=== PATIENT | male | born 1980 | race Caucasian/White ===

== ENCOUNTER 2017-02-24 13:52 | Inpatient (IN) | payer MEDICARE, MEDICAID ==
[2017-02-24] MEDS ORDERED: MAGNESIUM HYDROXIDE 2,400 MG/10 ML CUP PO PRN (15:54)
[2017-02-24] MEDS ORDERED: ACETAMINOPHEN TAB 325 MG TAB PO PRN (15:54)
[2017-02-24] MEDS ORDERED: FLUTICASONE 50MCG/SPRAY NASAL 16GM EA NOSTRIL PRN (15:59)
[2017-02-24 16:45] VITALS: BMI 31.8
[2017-02-24 16:54] LABS: Basophils % (A) 0 %; CH 28.4; Eosinophils % (A) 0 %; HCT 44.5 % (39.0-53.0); HDW 2.78; HGB 14.3 gm/dL (13.0-17.5); Luc % (Auto) 2; Lymphocytes # (A) 0.8 k/uL (1.0-4.8); Lymphocytes % (A) 14 %; MCH 27.8 pg (25.0-35.0); MCHC 32.1 g/dL (31.0-37.0); MCV 86.5 fL (80.0-100.0); Mean Platelet Volume 6.6; Monocytes # (A) 0.3 k/uL (0-1.0); Monocytes % (A) 5 %; Neutrophils # (A) 4.9 k/uL (1.3-7.7); Neutrophils % (A) 79 %; RBC 5.14 m/uL (4.30-5.90); RDW 14.1 % (11.5-15.5); WBC 6.1 k/uL (3.8-10.6); WBC (Perox) 6.19
[2017-02-24 17:07] LABS: ALT 24 U/L (21-72); AST 21 U/L (17-59); Alkaline Phosphatase 62 U/L (38-126); Anion Gap 11 mmol/L; Blood Urea Nitrogen 6 mg/dL (9-20); Calcium 9.6 mg/dL (8.4-10.2); Carbon Dioxide 27 mmol/L (22-30); Chloride 106 mmol/L (98-107); Glucose 88 mg/dL (74-99); Non-African American GFR(MDRD) >60 (>60 ml/min/1.73 sqM); Potassium 4.2 mmol/L (3.5-5.1); Sodium 144 mmol/L (137-145); Total Bilirubin 0.6 mg/dL (0.2-1.3); Total Protein 6.3 g/dL (6.3-8.2)
[2017-02-24] MEDS: LORazepam 1 MG TAB PO PRN (17:23)
[2017-02-24] MEDS: OLANZapine 10 MG TAB PO SCH (20:26)
[2017-02-24] MEDS: MAG HYDROX/AL HYDROX/SIMETH 30 ML CUP PO PRN (20:28)
[2017-02-24] MEDS ORDERED: cloZAPine 100 MG TAB PO SCH (21:00)
[2017-02-24] MEDS: BUDESONIDE 0.5 MG/2 ML NEBU INHALATION SCH (21:53)
[2017-02-25] MEDS: ESCITALOPRAM 20 MG TAB PO SCH (09:28)
[2017-02-25] MEDS: OLANZapine 10 MG TAB PO SCH ×2 (09:28→21:46)
[2017-02-25] MEDS: BUDESONIDE 0.5 MG/2 ML NEBU INHALATION SCH ×2 (11:07→21:35)
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
--- NOTE | 2017-02-25 16:45 | P.CONS ---
History of Present Illness - Reason for Consult Consult date: 02/25/17 Medical management - History of Present Illness This is a 37-year-old male. He does not have a primary care physician. He has a past history of schizophrenia and muscular dystrophy. Patient was apparently at [facility]. He apparently attempted suicide was agitated and delusional and hearing voices in his head. Patient states that he was delusional and hearing voices. He states he was suicidal but not homicidal. Patient was transferred to [facility] unit. Patient is seen on the mental health unit. He is unable to give history. He is noted to be stuttering and speech is slow. Review of Systems All systems: negative Constitutional: Denies chills, Denies fever Eyes: denies blurred vision, denies pain Ears, nose, mouth and throat: Denies headache, Denies sore throat Cardiovascular: Denies chest pain, Denies shortness of breath Respiratory: Denies cough Gastrointestinal: Denies abdominal pain, Denies diarrhea, Denies nausea, Denies vomiting Musculoskeletal: Denies myalgias Integumentary: Denies pruritus, Denies rash Neurological: Denies numbness, Denies weakness Psychiatric: Reports depression, Reports suicidal ideation, Denies anxiety Endocrine: Denies fatigue, Denies weight change Past Medical History Additional Past Medical History / Comment(s): Muscular Dystrophy History of Any Multi-Drug Resistant Organisms: None Reported Past Anesthesia/Blood Transfusion Reactions: No Reported Reaction Past Psychological History: Schizoaffective Disorder Smoking Status: Never smoker Additional Past Alcohol Use History / Comment(s): Patient denies any marijuana or street drug use. - Past Family History Father Additional Family Medical History / Comment(s): Patient is unable to provide family history. Medications and Allergies Home Medications Medication Instructions Recorded Confirmed Type ARIPiprazole [Abilify] 20 mg PO BID 02/24/17 02/24/17 History Escitalopram [Lexapro] 20 mg PO DAILY 02/24/17 02/24/17 History Fluticasone Nasal [place] [Flonase 1 spr EA NOSTRIL DAILY PRN 02/24/17 02/24/17 History Nasal Somers] Fluticasone Propionate [Flovent 2 puff INHALATION RT-BID 02/24/17 02/24/17 History Hfa 110mcg] Montelukast [Singulair] 10 mg PO HS PRN 02/24/17 02/24/17 History OLANZapine [ZyPREXA] 10 mg PO BID 02/24/17 02/24/17 History cloZAPine [Clozaril] 100 mg PO HS 02/24/17 02/24/17 History hydrOXYzine PAMOATE [Vistaril] 25 mg PO BID PRN 02/24/17 02/24/17 History Allergies Allergy/AdvReac Type Severity Reaction Status Date / Time aspirin Allergy Unknown Verified 02/24/17 15:00 clonazepam [From Klonopin] Allergy Unknown Verified 02/24/17 15:00 Physical Exam Vitals: Vital Signs Temp Pulse Pulse Resp BP BP BP 02/25/17 06:01 98.7 F 94 16 112/61 02/24/17 23:05 98.6 F 106 H 16 106/64 02/24/17 20:40 98.3 F 116 H 16 118/74 02/24/17 20:24 98.3 F 116 H 18 118/74 02/24/17 18:53 99 F 02/24/17 16:36 99.1 F 108 H 15 120/66 02/24/17 15:51 99.1 F 108 H 18 126/66 Pulse Ox 02/25/17 06:01 02/24/17 23:05 95 02/24/17 20:40 97 02/24/17 20:24 02/24/17 18:53 02/24/17 16:36 93 L 02/24/17 15:51 93 L Intake and Output 02/24/17 02/25/17 02/25/17 22:59 06:59 14:59 Other: Weight 92.1 kg Gen: This is a 37-year-old male. He appears to be in no acute distress. Patient does have a sitter/ MHU aide at his side. HEENT: Head is atraumatic, normocephalic. Pupils equal, round. Sclerae is anicteric. NECK: Supple. No JVD. No lymphadenopathy. No thyromegaly. LUNGS: Clear to auscultation. No wheezes or rhonchi. No intercostal retractions. HEART: Regular rate and rhythm. No murmur. ABDOMEN: Soft. Bowel sounds are present. No masses. No tenderness. EXTREMITIES: No pedal edema. No calf tenderness. NEUROLOGICAL: Patient is awake, alert and oriented x3. Cranial nerves 2 through 12 are grossly intact. Results CBC & Chem 7: 02/24/17 16:39 02/24/17 16:39 Labs: Abnormal Lab Results - Last 24 Hours (Table) 02/24/17 02/24/17 Range/Units 16:39 16:39 Lymphocytes # 0.8 L (1.0-4.8) k/uL BUN 6 L (9-20) mg/dL Assessment and Plan Plan: 1. Depression with suicidal ideation in a patient with schizophrenia. Patient admitted to the mental health unit. Continue current plan. 2. Possible seasonal ALLERGIES. Continue Flonase, Singulair and Flovent. 3. No tobacco use. No need for nicotine patch. Impression and plan of care have been directed as dictated by the signing physician. Crissy Correa nurse practitioner acting as scribe for signing physician.
--- NOTE | 2017-02-25 21:25 | CT ---
EXAMINATION TYPE: CT brain wo con DATE OF EXAM: 02/25/2017 9:20 PM COMPARISON: NONE HISTORY: Pin point pupils, possible injury. CT DLP: 1019.60 mGycm Automated exposure control for dose reduction was used. FINDINGS: Ventricles and sulci appear normal. There is no mass effect nor midline shift. There is no sign of in tracranial hemorrhage. The calvarium is intact. There are plugs in the external auditory canals bilat erally. IMPRESSION: Negative unenhanced head CT scan.
[2017-02-25 22:07] LABS: CH 28.3; CHCM 32.1; HCT 46.2 % (39.0-53.0); HDW 2.69; HGB 15.1 gm/dL (13.0-17.5); MCHC 32.7 g/dL (31.0-37.0); MCV 88.5 fL (80.0-100.0); Mean Platelet Volume 6.9; RBC 5.22 m/uL (4.30-5.90); RDW 14.1 % (11.5-15.5); WBC 5.2 k/uL (3.8-10.6)
[2017-02-25 22:15] LABS: Anion Gap 14 mmol/L; Blood Urea Nitrogen 10 mg/dL (9-20); Calcium 9.2 mg/dL (8.4-10.2); Carbon Dioxide 25 mmol/L (22-30); Chloride 103 mmol/L (98-107); Glucose 159 mg/dL (74-99); Non-African American GFR(MDRD) >60 (>60 ml/min/1.73 sqM); Potassium 3.8 mmol/L (3.5-5.1); Sodium 142 mmol/L (137-145)
[2017-02-25 23:27] LABS: Appearance,Urine Clear (Clear); Bilirubin,Urine Negative (Negative); Glucose,Urine (UA) Negative (Negative); Ketones,Urine Negative (Negative); Leukocyte Esterase,Urine Negative (Negative); Nitrite,Urine Negative (Negative); Protein,Urine Negative (Negative); Specific Gravity,Urine 1.006 (1.001-1.035); UA Billing (MACRO vs. MICRO) CHEM; Urobilinogen,Urine <2.0 mg/dL (<2.0)
[2017-02-26 07:58] LABS: Norclozapine 78 ng/mL (200-700)
[2017-02-26 09:07] LABS: CH 28.1; CHCM 32.4; HCT 47.8 % (39.0-53.0); HDW 2.76; HGB 15.7 gm/dL (13.0-17.5); MCH 28.6 pg (25.0-35.0); MCHC 32.8 g/dL (31.0-37.0); MCV 87.2 fL (80.0-100.0); Mean Platelet Volume 6.6; RBC 5.48 m/uL (4.30-5.90); WBC 6.5 k/uL (3.8-10.6)
[2017-02-26] MEDS: BUDESONIDE 0.5 MG/2 ML NEBU INHALATION SCH ×2 (09:23→21:00)
[2017-02-26] MEDS: OLANZapine 10 MG TAB PO SCH ×2 (10:39→21:15)
[2017-02-26] MEDS: ESCITALOPRAM 20 MG TAB PO SCH (10:39)
--- NOTE | 2017-02-26 10:39 | P.PN ---
Progress Note - Text INTERVERAL HISTORY: Patient presented to the [facility] February 23, with signs and symptoms of schizophrenia, decompensation. He was reported to be experiencing an increase in his auditory and visual hallucinations. He presented with thought blocking depression and agitation. In the ER staff reported that patient is suicidal and had attempted to elope from their unit. Patient had recently moved back to his parents home after living alone, after his Clozaril was discontinued. Patient also has cerebral palsy. He was placed on a 60/90 order in [place] and then sent to [place] with Certs in our emergency room and myself making the decision that he could not sign in. Information from his treating psychiatrists was not available, however, family reported that they had found a doctor who would restart Clozaril. However no information was provided regarding what caused the discontinuation of Clozaril, and whether or not the cause was due to a low ANC. Dr. Girard outpatient psychiatrist, is reportedly to have started Clozaril at 100 mg a day for 7 days, with plan to increase by 100 mg each week. Clozaril was held last night since I could not get information about the patient 's lab work or rechallenge of Clozaril. Last night nursing staff became alarmed when it was noted that patient had myosis, question if there had been a fall, so CAT scan was ordered and was read back to me as negative. It was also noted there was no urine drug screen so nursing staff pushed fluids and attempted to get a urine drug screen. Today patient was seen walking slowly down the hallway, and then in his room seated on his bed. Remains essentially unchanged poor eye contact, halting slow responses. Contacted [facility], registered patient. They provided the lab information that may have been the cause of the discontinuation of Clozaril in early January. According to the last CBC done on January 07 his neutrophil count was 1820. This would not require discontinuation of Clozaril. However no other labs prior to that were provided to me. On January 14 his neutrophil count was 3430, on February 20 3620, and here on our lab it was 4900. I have no information regarding what precipitated this drop MENTAL STATUS EXAM: Alert and oriented 2 incorrect date, 2016, poor eye contact and staring at the floor. Answering with halting speech, stuttering and hard to hear due to the volume. At times using thumbs up for answers Patient states he is not hearing voices, but hears his voice, states he hears his voice when awake and asleep. No report of visual hallucinations, patient has not been noted by sitters or staff to be responding to internal stimuli. Mood blunted affect flat. Reports suicidal ideation, denies homicidal ideation. PLAN: Continue inpatient psychiatric admission for safety. Suicide precautions , patient needs a sitter Restart Clozaril with initiating doses of 12.5 mg twice a day, increasing by 25 mg each day. CBC daily basis. Continue other medications prescribed Abilify 20 mg twice a day, Zyprexa 10 mg twice a day, Lexapro 20 mg daily, lorazepam 1 mg every 8 when necessary severe anxiety agitation. Encourage group attendance as tolerates. Progress notes from outpatient doctor.
[2017-02-26] MEDS: MAG HYDROX/AL HYDROX/SIMETH 30 ML CUP PO PRN (10:52)
[2017-02-26] MEDS: cloZAPine 25 MG TAB PO SCH ×2 (11:17→21:15)
[2017-02-26] MEDS ORDERED: BISACODYL 10 MG SUPP RECTAL STA (11:34)
--- NOTE | 2017-02-26 13:43 | XR ---
Abdomen HISTORY: Pain vomiting and nausea Frontal view of the abdomen on 2 images Lung bases are clear. There is a spinal curvature. No bowel obstruction or pneumoperitoneum. Punctate calcification may be superimposed over the left kidney measuring 1 mm. IMPRESSION: Difficult to exclude left-sided renal calculus.
--- NOTE | 2017-02-26 15:26 | P.PN ---
Subjective This is a 37-year-old male. He does not have a primary care physician. He has a past history of schizophrenia and muscular dystrophy. Patient was apparently at [facility]. He apparently attempted suicide was agitated and delusional and hearing voices in his head. Patient states that he was delusional and hearing voices. He states he was suicidal but not homicidal. Patient was transferred to [facility] unit. Patient is seen on the mental health unit. He is unable to give history. He is noted to be stuttering and speech is slow. 02/26: We have been asked to reassess the patient for lack of bowel sounds. Patient was given milk of magnesia and Maalox today. We have also ordered Dulcolax suppository and KUB of the abdomen. X-ray showed no bowel obstruction , possible kidney stone. Patient denies any abdominal pain. Bowel sounds are present. Abdomen is nontender. There was also concern for pinpoint pupils and the CAT scan of the brain was done which was negative. Patient is noted to have pinpoint pupils due to looking into the fluorescent lights. Pupils are equal and reactive. Objective - Vital Signs Vital signs: Vital Signs Temp 98.0 F 02/26/17 11:08 Pulse 111 H 02/26/17 11:08 Resp 16 02/26/17 11:08 BP 116/65 02/26/17 11:08 Pulse Ox 96 02/26/17 11:08 - Exam Gen: This is a 37-year-old male. He appears to be in no acute distress. He is laying on the bed in his room. Patient does have a sitter at bedside. HEENT: Head is atraumatic, normocephalic. Pupils equal, round. Sclerae is anicteric. NECK: Supple. No JVD. No lymphadenopathy. No thyromegaly. LUNGS: Clear to auscultation. No wheezes or rhonchi. No intercostal retractions. HEART: Regular rate and rhythm. No murmur. ABDOMEN: Soft. Bowel sounds are present. No masses. No tenderness. EXTREMITIES: No pedal edema. No calf tenderness. NEUROLOGICAL: Patient is awake, alert and oriented x3. Cranial nerves 2 through 12 are grossly intact. - Labs CBC & Chem 7: 02/26/17 08:52 02/25/17 21:47 Labs: Abnormal Lab Results - Last 24 Hours (Table) 02/25/17 02/25/17 02/25/17 Range/Units 09:03 21:47 23:00 Glucose 159 H (74-99) mg/dL Clozapine 149 L (200-700) ng/mL Norclozapine 78 L (200-700) ng/mL U Benzodiazepines Scrn Detected H (NotDetected) Assessment and Plan Plan: 1. Depression with suicidal ideation in a patient with schizophrenia. Patient admitted to the mental health unit. Continue current plan. 2. Possible seasonal ALLERGIES. Continue Flonase, Singulair and Flovent. 3. No tobacco use. No need for nicotine patch. 4. Possible constipation. Continue milk of magnesia. Impression and plan of care have been directed as dictated by the signing physician. Crissy Correa nurse practitioner acting as scribe for signing physician.
[2017-02-26 19:40] LABS: Glucose,Whole Blood 159 mg/dL (75-99)
--- NOTE | 2017-02-27 09:16 | P.PN ---
Progress Note - Text INTERVERAL HISTORY:Patient was approached in hallway, he agreed to come to office. Patient responded to questions with halting speech, frequently answering with a question. Patient did not answer how he was doing today, but asked where he should begin, he spelled where instead of saying the word. He continued to do this spelling why, when. He gave a thumbs up when asked about suicidal ideation. He then reported he is getting mad, aggressive. Patient asked when can he leave hospital, again spelling word when. MENTAL STATUS EXAM:A&O x2, poorly groomed, poor to fair eye contact. +auditory hallucinations, no visual hallucinations reported, no command hallucinations. Less thought blocking, less odd/illogical thoughts/responses but still tangential with cecilio. mood blunted, affect flat. +suicidal ideation, no homicidal ideation A:Patient remains with thought disorganization, with hallucinations, cecilio, odd statements, spelling of words but improved eye contact. Suicidal ideation. Schizophrenia, undifferentiated PLAN: Patient to continue psychiatric inpatient admission for safety purposes and medication management of psychosis. Will increase clozaril to am to 25mg bid. Will check cbc with dif tomorrow morning. Continue abilify, zyprexa as long as patient is reporting feeling aggressive/ angry since he required higher doses to manage his aggression. Milieu therapy as tolerated Remain 1:[address] Girard, she reports he was admitted to hospital after his outpatient psychiatrist Dr Spencer started him on vraylar and he had aggressive behavior response to it. Admitted to hospital, and prescribed zyprexa 40mg qday , Abilify 20mg bid and abilify mantena 450mg. When seen by Dr Lorenz, he presented with TB, tangential, circumstantial TP with odd statements but polite , not using hands to communicate. She contacted [facility] and registered patient with her, noting his neutrophil count was 1.8, not requiring discontinuation of clozaril. She reduced zyprexa to 10mg bid, started clozaril. However patient became aggressive again and family took to ER and patient transferred here. She reports patient did well for 20+ years on clozaril 450mg split in 2 doses 200mg qam 250qpm, zoloft 250mg for OCD. She would like to have lexapro changed back to zoloft. Would like to consider a mood stabilizer, trileptal 150mg bid Taper off the 2 antipsychotics when possible. Agreed with the clozaril titration of increase daily by 12.5mg bid or 25mg bid.
[2017-02-27] MEDS: OLANZapine 10 MG TAB PO SCH ×2 (09:52→20:20)
[2017-02-27] MEDS: ESCITALOPRAM 20 MG TAB PO SCH (09:52)
[2017-02-27] MEDS: cloZAPine 25 MG TAB PO SCH ×2 (09:53→20:20)
[2017-02-27] MEDS: BUDESONIDE 0.5 MG/2 ML NEBU INHALATION SCH ×2 (09:55→20:47)
[2017-02-27] MEDS ORDERED: cloZAPine 25 MG TAB PO SCH (11:00)
[2017-02-27 11:59] LABS: Basophils % (A) 0 %; CH 28.5; CHCM 32.6; Eosinophils % (A) 0 %; HCT 49.1 % (39.0-53.0); HDW 2.76; HGB 15.9 gm/dL (13.0-17.5); Luc # (Auto) 0.11; Luc % (Auto) 2; Lymphocytes % (A) 18 %; MCH 28.4 pg (25.0-35.0); MCHC 32.4 g/dL (31.0-37.0); MCV 87.8 fL (80.0-100.0); Mean Platelet Volume 6.6; Monocytes # (A) 0.3 k/uL (0-1.0); Monocytes % (A) 6 %; Neutrophils # (A) 4.1 k/uL (1.3-7.7); Neutrophils % (A) 74 %; RBC 5.59 m/uL (4.30-5.90); RDW 14.1 % (11.5-15.5); WBC 5.6 k/uL (3.8-10.6); WBC (Perox) 5.87
[2017-02-28] MEDS: ARIPiprazole 15 MG TAB PO SCH (09:41)
[2017-02-28] MEDS: cloZAPine 25 MG TAB PO SCH ×4 (09:42→22:12)
[2017-02-28] MEDS: OLANZapine 10 MG TAB PO SCH ×2 (09:43→22:14)
[2017-02-28] MEDS: DOCUSATE 100 MG CAP PO SCH ×2 (09:43→22:14)
[2017-02-28] MEDS: ESCITALOPRAM 20 MG TAB PO SCH (09:43)
[2017-02-28] MEDS: BUDESONIDE 0.5 MG/2 ML NEBU INHALATION SCH ×2 (10:46→21:18)
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
[2017-02-28 11:05] LABS: Basophils % (A) 0 %; CH 28.2; CHCM 32.4; Eosinophils % (A) 0 %; HCT 46.6 % (39.0-53.0); HDW 2.79; HGB 15.1 gm/dL (13.0-17.5); Luc # (Auto) 0.07; Luc % (Auto) 1; Lymphocytes # (A) 0.8 k/uL (1.0-4.8); Lymphocytes % (A) 16 %; MCH 28.4 pg (25.0-35.0); MCHC 32.4 g/dL (31.0-37.0); MCV 87.5 fL (80.0-100.0); Mean Platelet Volume 6.7; Monocytes # (A) 0.3 k/uL (0-1.0); Monocytes % (A) 5 %; Neutrophils # (A) 4.2 k/uL (1.3-7.7); Neutrophils % (A) 78 %; RBC 5.33 m/uL (4.30-5.90); WBC 5.4 k/uL (3.8-10.6); WBC (Perox) 5.21
[2017-02-28] MEDS: LORazepam 1 MG TAB PO PRN (14:15)
[2017-03-01] MEDS: LORazepam 1 MG TAB PO PRN ×2 (00:57→19:14)
[2017-03-01] MEDS ORDERED: ZIPRASIDONE 20 MG VIAL IM ONE ×2 (01:55→19:34)
[2017-03-01] MEDS ORDERED: WATER FOR INJECTION, STERILE 10 ML IV ONE ×2 (01:55→19:34)
[2017-03-01] MEDS: ZIPRASIDONE 20 MG VIAL IM PRN ×2 (01:56→19:39)
[2017-03-01] MEDS: ARIPiprazole 15 MG TAB PO SCH (09:28)
[2017-03-01] MEDS: cloZAPine 25 MG TAB PO SCH ×3 (09:29→19:50)
[2017-03-01] MEDS: DOCUSATE 100 MG CAP PO SCH ×2 (09:30→19:50)
[2017-03-01] MEDS: ESCITALOPRAM 20 MG TAB PO SCH (09:31)
[2017-03-01] MEDS: OLANZapine 10 MG TAB PO SCH ×2 (09:32→20:45)
[2017-03-01] MEDS: BUDESONIDE 0.5 MG/2 ML NEBU INHALATION SCH ×2 (10:05→21:26)
--- NOTE | 2017-03-01 10:48 | P.PN ---
Progress Note - Text INTERVERAL HISTORY: Patient walking in the hallway with nurses aide, approached me, "are you DrKishan?". Patient asked if he could talk with me if I was not busy he followed me to my office. Patient again with halting speech, spelling of words. Wants to let me know that he is able to change the appearances of people, speaks in short bursts, spelling some words. Little to no eye contact. Reports that he went to court, that he has received letters from people, his family. Patient continues with illogical thought process. Unable to answer if he is suicidal, but reports he gets mad and aggressive. He did state this is coming and going. MENTAL STATUS EXAM: Alert and oriented to person and place, poorly groomed, poor eye contact. Continues with illogical, tangential thought process. Positive for WARREN. Although not identifying auditory hallucinations, he appears to be responding to them and thought blocking. Mood blunted, affect flat No clear evidence of suicidal ideation, but due to his remark of getting mad and aggressive he may have some command hallucinations to harm others. Schizophrenia, undifferentiated, decompensated History of OCD PLAN: Continue inpatient psychiatric hospitalization, for safety of patient and others, and medication management of psychosis. Continue titration of Clozaril, increased daily by 25-50 mg of Clozaril Over the weekend will continue Abilify 30 mg daily, Zyprexa 10 mg twice a day. Continue one to one monitoring for safety. Groups as tolerated. Addendum: Nursing reported patient was restless and required lorazepam and geodone. Will increase olanzapine at HS, 10mg qam. Will not reduce Abilify over weekend but plan to eventually taper and d/c. Will keep clozaril at 50mg bid over weekend. Daily CBC/ANC
[2017-03-01 12:36] LABS: Basophils % (A) 0 %; CH 28.6; CHCM 33.3; Eosinophils % (A) 0 %; HCT 46.6 % (39.0-53.0); HDW 2.97; HGB 15.2 gm/dL (13.0-17.5); Luc # (Auto) 0.13; Luc % (Auto) 2; Lymphocytes % (A) 15 %; MCH 28.1 pg (25.0-35.0); MCHC 32.5 g/dL (31.0-37.0); MCV 86.4 fL (80.0-100.0); Mean Platelet Volume 6.6; Monocytes # (A) 0.4 k/uL (0-1.0); Monocytes % (A) 6 %; Neutrophils # (A) 5.1 k/uL (1.3-7.7); Neutrophils % (A) 76 %; RDW 13.8 % (11.5-15.5); WBC 6.6 k/uL (3.8-10.6); WBC (Perox) 6.78
[2017-03-01] MEDS: LORazepam 2 MG/ML SYRINGE IM PRN (19:39)
[2017-03-01] MEDS: NYSTATIN 100,000 UNIT/GM POWD 15 GM TOPICAL SCH (19:50)
[2017-03-02 08:42] LABS: Basophils % (A) 0 %; CH 28.3; CHCM 32.3; Eosinophils % (A) 0 %; HCT 49.5 % (39.0-53.0); HDW 2.81; HGB 16.2 gm/dL (13.0-17.5); Luc # (Auto) 0.12; Luc % (Auto) 2; Lymphocytes # (A) 0.9 k/uL (1.0-4.8); Lymphocytes % (A) 15 %; MCH 28.7 pg (25.0-35.0); MCHC 32.7 g/dL (31.0-37.0); MCV 87.8 fL (80.0-100.0); Mean Platelet Volume 6.6; Monocytes # (A) 0.3 k/uL (0-1.0); Monocytes % (A) 5 %; Neutrophils # (A) 4.9 k/uL (1.3-7.7); Neutrophils % (A) 78 %; RBC 5.64 m/uL (4.30-5.90); RDW 13.9 % (11.5-15.5); WBC 6.2 k/uL (3.8-10.6); WBC (Perox) 6.15
[2017-03-02] MEDS: BUDESONIDE 0.5 MG/2 ML NEBU INHALATION SCH ×2 (09:11→20:22)
[2017-03-02] MEDS: OLANZapine 10 MG TAB PO SCH ×2 (09:14→20:54)
[2017-03-02] MEDS: ESCITALOPRAM 20 MG TAB PO SCH (09:15)
[2017-03-02] MEDS: cloZAPine 25 MG TAB PO SCH ×2 (09:15→20:54)
[2017-03-02] MEDS: DOCUSATE 100 MG CAP PO SCH ×2 (09:15→20:54)
[2017-03-02] MEDS: ARIPiprazole 15 MG TAB PO SCH (09:15)
[2017-03-02] MEDS: NYSTATIN 100,000 UNIT/GM POWD 15 GM TOPICAL SCH ×3 (10:02→22:06)
--- NOTE | 2017-03-02 18:41 | P.PN ---
Progress Note - Text Date of service: 03/02/2017 Chief complaint: "I'm hearing real voices" Subjective: The patient has been seen today as follow-up, chart reviewed, case discussed with the treatment team. patient has been presented and very blunted affect, very few steps when walking, unable to talk in full statement, spelling words. Patient has been talking about continued to hear voices and the voices telling him to do things but he couldn't explain more. When he was asking about the voices telling him to hurt self or other he answered "kind of" the patient currently on 3 anti-psychotic medication with the plan to take him off Abilify. Patient recently started on clozapine and he is currently on 50 mg twice daily. CBC reviewed. Review of other systems: Patient denies any physical symptoms besides what has been mentioned above. No breathing problems, no chest pain reported today. Objective: Vitals has been reviewed. Mental status examination: The patient presented in poor hygiene poorly groomed with normal eye contact. He has very short steps when he walks was normal arm swinging and very stiff. Patient was very guarded patient presented with psychomotor retardation Speech was monotone, spelling words. Mood is depressed, was blunted affect patient looks responding to internal stimuli and he reported auditory hallucinations The patient presented logical tangential Insight: Patient has limited insight about his psychiatric disorder. Judgment: Patient has limited judgment about his psychiatric treatment. Assessment: schizophrenia Plan: continue Lexapro 20 mg daily for depression Continue Abilify 30 mg daily, Zyprexa 10 mg a.m. and 20 mg at bedtime, and clozapine 50 mg twice daily for persistent severe psychotic symptoms Continue [facility] with [facility] as her original plan.
[2017-03-02] MEDS ORDERED: WATER FOR INJECTION, STERILE 10 ML IV ONE (21:37)
[2017-03-02] MEDS ORDERED: ZIPRASIDONE 20 MG VIAL IM ONE (21:37)
[2017-03-02] MEDS: LORazepam 2 MG/ML SYRINGE IM PRN (21:40)
[2017-03-02] MEDS: ZIPRASIDONE 20 MG VIAL IM PRN (21:40)
[2017-03-03] MEDS: OLANZapine 10 MG TAB PO SCH ×2 (08:45→20:25)
[2017-03-03] MEDS: ESCITALOPRAM 20 MG TAB PO SCH (08:45)
[2017-03-03] MEDS: DOCUSATE 100 MG CAP PO SCH ×2 (08:45→20:24)
[2017-03-03] MEDS: cloZAPine 25 MG TAB PO SCH ×2 (08:45→20:24)
[2017-03-03] MEDS: ARIPiprazole 15 MG TAB PO SCH (08:45)
[2017-03-03 09:26] LABS: Basophils % (A) 0 %; CH 28.2; CHCM 32.4; Eosinophils % (A) 0 %; HCT 50.6 % (39.0-53.0); HDW 2.81; HGB 16.4 gm/dL (13.0-17.5); Luc % (Auto) 2; Lymphocytes # (A) 1.1 k/uL (1.0-4.8); Lymphocytes % (A) 18 %; MCH 28.3 pg (25.0-35.0); MCHC 32.4 g/dL (31.0-37.0); MCV 87.5 fL (80.0-100.0); Mean Platelet Volume 6.7; Monocytes # (A) 0.3 k/uL (0-1.0); Monocytes % (A) 5 %; Neutrophils # (A) 4.9 k/uL (1.3-7.7); Neutrophils % (A) 76 %; RBC 5.78 m/uL (4.30-5.90); WBC 6.5 k/uL (3.8-10.6); WBC (Perox) 6.35
[2017-03-03] MEDS: BUDESONIDE 0.5 MG/2 ML NEBU INHALATION SCH ×2 (09:32→20:18)
[2017-03-03] MEDS: NYSTATIN 100,000 UNIT/GM POWD 15 GM TOPICAL SCH ×2 (09:59→20:24)
--- NOTE | 2017-03-03 12:44 | P.PN ---
Progress Note - Text Date of service: 03/03/2017 Chief complaint: "I feel my family lives here too" Subjective: The patient has been seen today as follow-up, chart reviewed, case discussed with the treatment team. The patient presented very emotional, tearing and very stressed. He was talking about he believes his family lives here in the hospital and he would be living here forever. The patient was not able to explain or talk about his mood but he continued to state that he has suicidal thoughts without exploring about that. The patient reported continued to hear voices. The patient presented the same regarding his his speech is spelling words and unable to talk in full statement. Patient was very agitated, and he was directed to nurse to get when necessary medication. Continue anti- psychotic medication including Abilify, Zyprexa, and clozapine 50 mg twice daily. CBC reviewed WNL. Review of other systems: No breathing problems, no chest pain reported today. Objective: Vitals has been reviewed. Mental status examination: The patient presented in poor hygiene poorly groomed with normal eye contact. He has very short steps when he walks was normal arm swinging and very stiff. Patient was very guarded patient presented with psychomotor retardation Speech was monotone, spelling words. Mood is depressed, was tearful and very agitated affect patient looks responding to internal stimuli and he reported auditory hallucinations The patient presented tangential and not coherent Insight: Patient has limited insight about his psychiatric disorder. Judgment: Patient has limited judgment about his psychiatric treatment. Assessment: schizophrenia Plan: Continue inpatient level of care continue Lexapro 20 mg daily for depression Continue Abilify 30 mg daily, Zyprexa 10 mg a.m. and 20 mg at bedtime, and clozapine 50 mg twice daily for persistent severe psychotic symptoms Continue follow-up with CBC daily as per original plan. Continue one on one monitoring.
[2017-03-03] MEDS: LORazepam 1 MG TAB PO PRN (13:08)
[2017-03-04 07:59] LABS: Basophils % (A) 0 %; CH 28.3; CHCM 32.4; Eosinophils % (A) 0 %; HCT 47.6 % (39.0-53.0); HDW 2.82; HGB 15.5 gm/dL (13.0-17.5); Luc % (Auto) 2; Lymphocytes % (A) 20 %; MCH 28.6 pg (25.0-35.0); MCHC 32.6 g/dL (31.0-37.0); MCV 87.7 fL (80.0-100.0); Mean Platelet Volume 6.7; Monocytes # (A) 0.3 k/uL (0-1.0); Monocytes % (A) 5 %; Neutrophils # (A) 3.6 k/uL (1.3-7.7); Neutrophils % (A) 73 %; RBC 5.43 m/uL (4.30-5.90); WBC 4.9 k/uL (3.8-10.6)
[2017-03-04] MEDS: BUDESONIDE 0.5 MG/2 ML NEBU INHALATION SCH ×2 (09:13→21:21)
[2017-03-04] MEDS: cloZAPine 25 MG TAB PO SCH (10:30)
[2017-03-04] MEDS: ARIPiprazole 15 MG TAB PO SCH (10:30)
[2017-03-04] MEDS: DOCUSATE 100 MG CAP PO SCH ×2 (10:30→22:15)
[2017-03-04] MEDS: ESCITALOPRAM 20 MG TAB PO SCH (10:30)
[2017-03-04] MEDS: NYSTATIN 100,000 UNIT/GM POWD 15 GM TOPICAL SCH ×2 (10:31→22:15)
[2017-03-04] MEDS: OLANZapine 10 MG TAB PO SCH ×2 (10:31→22:15)
--- NOTE | 2017-03-04 14:41 | P.PN ---
Progress Note - Text INTERVERAL HISTORY: Patient lying in bed and awoke easily to name being called, but rather than looking at consumer loan underwriter kept his head turned away "is that you Dr.? " Asked patient to sit up on side of bed he complied. Asked patient how he was feeling, patient took 30 seconds 45 seconds to answer, "can I tell you something" patient then stated he wants me to read a letter but states that letters in his journal have been stolen. Patient continues with slow responses non sequitur responses, and frequently asking questions rather than answering. Patient is speaking in low tones and when asked to speak up patient states I'm talking loud. Patient would not answer if he was suicidal, or if he was hearing voices, but answered that I'm no longer recognizing who he is. Asked to he is and he reported he is no longer Chris Kathleen, but could not state who he was. Today no no spelling of words no halting or stuttering but delayed responses. MENTAL STATUS EXAM: Alert and oriented to person and place, poorly groomed, poor eye contact. Continues with illogical, tangential thought process. Positive for WARREN. Although not identifying auditory hallucinations, he appears to be responding to them and thought blocking. Mood blunted, affect flat No clear evidence of suicidal ideation, but due to his remark of getting mad and aggressive he may have some command hallucinations to harm others. Schizophrenia, undifferentiated, decompensated History of OCD PLAN: Continue inpatient psychiatric hospitalization, for safety of patient and others, and medication management of psychosis. Continue with 1:1 Continue titration of Clozaril, increased daily by 50 mg of Clozaril. Begin tonight 100mg, continue 50mg QAM. Reduce Abilify 20 mg daily, continue Zyprexa 10mg qam and 20mg qhs, with goal to eventually d/c both abilify and zyprexa once responding to clozaril. Groups as tolerated.
[2017-03-04] MEDS ORDERED: cloZAPine 100 MG TAB PO SCH (21:00)
[2017-03-05 09:43] LABS: Basophils % (A) 0 %; CH 28.5; Eosinophils % (A) 0 %; HCT 48.3 % (39.0-53.0); HDW 2.71; HGB 15.2 gm/dL (13.0-17.5); Luc % (Auto) 2; Lymphocytes % (A) 16 %; MCH 28.1 pg (25.0-35.0); MCHC 31.5 g/dL (31.0-37.0); MCV 89.2 fL (80.0-100.0); Mean Platelet Volume 6.7; Monocytes # (A) 0.2 k/uL (0-1.0); Monocytes % (A) 4 %; Neutrophils # (A) 4.9 k/uL (1.3-7.7); Neutrophils % (A) 79 %; RBC 5.41 m/uL (4.30-5.90); RDW 13.9 % (11.5-15.5); WBC 6.2 k/uL (3.8-10.6)
[2017-03-05] MEDS: BUDESONIDE 0.5 MG/2 ML NEBU INHALATION SCH ×2 (10:27→21:28)
[2017-03-05] MEDS: ESCITALOPRAM 20 MG TAB PO SCH (11:14)
[2017-03-05] MEDS: DOCUSATE 100 MG CAP PO SCH ×2 (11:15→22:36)
[2017-03-05] MEDS: cloZAPine 25 MG TAB PO SCH (11:16)
[2017-03-05] MEDS: OLANZapine 10 MG TAB PO SCH ×2 (11:17→22:36)
[2017-03-05] MEDS: NYSTATIN 100,000 UNIT/GM POWD 15 GM TOPICAL SCH ×2 (11:17→22:36)
--- NOTE | 2017-03-05 12:51 | P.PN ---
Progress Note - Text INTERVERAL HISTORY: Patient lying in bed and awoke easily to name being called, patient again asked who was speaking rather than looking at person. Asked patient to come to office, he complied, walking in a stiff robot fashion. Seated with arms straight out fingers extended, staring straight ahead rather than at film writer. Patient responded slowly to all questions. No spelling of words. No hand signals , occaisonal eye contact, saying doctor almost every other word. Continues to report delusions, today focusing on "uncle Miguel Legget" unclear what about him but patient stated he felt sad. Patient continues with slow responses non sequitur responses, and frequently asking questions rather than answering. Patient is speaking in low tones. Patient would not answer if he was suicidal, but staff has reported he has said he would put arms around himself. Continues to report identity fraud, including him not being Chris. MENTAL STATUS EXAM: Essentially unchanged Alert and oriented to person and place, poorly groomed, poor eye contact. Continues with illogical, tangential thought process. Positive for WARREN. Although not identifying auditory hallucinations, he appears to be responding to them and thought blocking. Mood blunted, affect flat No clear evidence of suicidal ideation, but due to his remark of getting mad and aggressive he may have some command hallucinations to harm others. Schizophrenia, undifferentiated, decompensated History of OCD PLAN: Continue inpatient psychiatric hospitalization, for safety of patient and others, and medication management of psychosis. Will discontinue with 1:1 today and assess him q15min, encouraged him to attend groups when he can Continue titration of Clozaril, increased daily by 50 mg of Clozaril. Begin tonight 150mg, continue 50mg QAM. Reduce Abilify 10 mg tomorrow morning and on Saturday will d/c. Continue Zyprexa 10mg qam and 20mg qhs, with goal to eventually taper and d/c zyprexa if possible.
[2017-03-05] MEDS ORDERED: cloZAPine 100 MG TAB PO SCH (21:00)
[2017-03-05] MEDS ORDERED: cloZAPine 25 MG TAB PO SCH (21:00)
[2017-03-06] MEDS: BUDESONIDE 0.5 MG/2 ML NEBU INHALATION SCH ×2 (08:00→21:53)
[2017-03-06] MEDS ORDERED: ARIPiprazole 10 MG TAB PO SCH (09:00)
[2017-03-06] MEDS: DOCUSATE 100 MG CAP PO SCH ×2 (09:45→20:37)
[2017-03-06] MEDS: cloZAPine 25 MG TAB PO SCH (09:46)
[2017-03-06] MEDS: ESCITALOPRAM 20 MG TAB PO SCH (09:48)
[2017-03-06] MEDS: OLANZapine 10 MG TAB PO SCH ×2 (09:48→20:37)
[2017-03-06] MEDS: NYSTATIN 100,000 UNIT/GM POWD 15 GM TOPICAL SCH ×2 (09:52→20:37)
[2017-03-06 10:02] LABS: Basophils % (A) 0 %; CH 28.5; CHCM 32.3; Eosinophils % (A) 0 %; HCT 49.9 % (39.0-53.0); HGB 15.9 gm/dL (13.0-17.5); Luc # (Auto) 0.14; Luc % (Auto) 2; Lymphocytes # (A) 0.9 k/uL (1.0-4.8); Lymphocytes % (A) 11 %; MCH 28.2 pg (25.0-35.0); MCHC 31.8 g/dL (31.0-37.0); MCV 88.7 fL (80.0-100.0); Mean Platelet Volume 6.7; Monocytes # (A) 0.3 k/uL (0-1.0); Monocytes % (A) 3 %; Neutrophils # (A) 6.5 k/uL (1.3-7.7); Neutrophils % (A) 83 %; RBC 5.62 m/uL (4.30-5.90); WBC 7.8 k/uL (3.8-10.6); WBC (Perox) 7.65
--- NOTE | 2017-03-06 13:36 | P.PN ---
Progress Note - Text INTERVERAL HISTORY: Patient patient seen walking in the hallway with nursing staff, refused to look at me. Later patient was seen sitting on the edge of his bed, asked him if he would come to my office to talk, he answered with a question where is your office. Patient has been remaining to himself in his room but last night he did go to the dining room for dinner without being prompted. He has been resistant in ADLs. He continues to display slowed mentation, halting speech and thought blocking. However today he was more interactive than previous days. He is tolerating the reduction of Abilify without an increase in psychotic symptoms Patient responded slowly to all questions. Afew words were spelled. He continues to focus on identity, today saying that he is a stranger to me. Spoke about and Brandy Jimenez, as if he is speaking of himself. Believes he can tell the future or if he thinks of something it will happen. Patient not reporting suicidal or homicidal ideation Laboratory Tests 03/06/17 09:23 WBC 7.8 RBC 5.62 Hgb 15.9 Hct 49.9 MCV 88.7 MCH 28.2 MCHC 31.8 RDW 14.0 Plt Count 252 Neutrophils % 83 Lymphocytes % 11 Monocytes % 3 Neutrophils # 6.5 Lymphocytes # 0.9 L MENTAL STATUS EXAM: Essentially unchanged but showing some improved interaction Alert and oriented to person and place, poorly groomed, occasional eye contact. Continues with illogical, tangential thought process. Positive for WARREN. + delusions. Although not identifying auditory hallucinations, he appears to be responding to them and thought blocking. Mood blunted, affect flat No suicidal ideation. Schizophrenia, undifferentiated, decompensated History of OCD PLAN: Continue inpatient psychiatric hospitalization, for safety of patient and others, and medication management of psychosis. Suicide checks q15min, encouraged him to attend groups when he can. Continue titration of Clozaril, increased daily by 50 mg of Clozaril. Begin tonight 200mg, continue 50mg QAM. CBC WNL, neutrophils WNL. D/C Abilify Continue Zyprexa 10mg qam and 20mg qhs, with goal to eventually taper and d/c zyprexa if possible.
[2017-03-06] MEDS: cloZAPine 100 MG TAB PO SCH (20:36)
[2017-03-07] MEDS: NYSTATIN 100,000 UNIT/GM POWD 15 GM TOPICAL SCH ×2 (08:39→21:06)
[2017-03-07] MEDS: DOCUSATE 100 MG CAP PO SCH ×2 (08:43→21:04)
[2017-03-07] MEDS: OLANZapine 10 MG TAB PO SCH ×2 (08:44→21:04)
[2017-03-07] MEDS ORDERED: ESCITALOPRAM 10 MG TAB PO SCH (09:00)
[2017-03-07] MEDS ORDERED: cloZAPine 100 MG TAB PO SCH (09:00)
[2017-03-07] MEDS: BUDESONIDE 0.5 MG/2 ML NEBU INHALATION SCH ×2 (09:20→21:06)
--- NOTE | 2017-03-07 13:32 | P.PN ---
Progress Note - Text INTERVERAL HISTORY: Patient went to lunch on his own w/o being directed. Clarification as to why patient calls himself Casey (that was his name prior to adoption, pt only recently found out he was adopted, which may explain the identity focus). Patient met with family yesterday and felt sad when they left. He is tolerating the titration of clozaril. Today is the first day that he did not receive Abilify in am and no problems noted, no increase of psychosis. He went to group this morning, tolerated for 30 min, only had to state his name but could not. Continue slow mentation, but improving, halting speech, no spelling or hand signals. Patient asked if I could tell he is calmer. Patient not reporting suicidal or homicidal ideation Laboratory Tests 03/02/17 03/03/17 03/04/17 08:10 08:57 07:39 Neutrophils % 78 76 73 03/05/17 03/06/17 08:48 09:23 Neutrophils % 79 83 MENTAL STATUS EXAM: Essentially unchanged but showing some improved interaction. Alert and oriented to person and place, poorly groomed, occasional eye contact. Continues with illogical, tangential thought process. Positive for AWRREN. + delusions. Although not identifying auditory hallucinations, he appears to be responding to them and thought blocking. Mood blunted, affect flat No suicidal ideation. Schizophrenia, undifferentiated, decompensated History of OCD PLAN: Continue inpatient psychiatric hospitalization, for safety of patient and others, and medication management of psychosis. Suicide checks q15min, encouraged him to attend groups when he can. Continue titration of Clozaril, increased daily by 50 mg of Clozaril. Begin today 100mg qam, 200mg qhs. Reduce lexapro to 10mg qam Continue Zyprexa 10mg qam and 20mg qhs, with goal to eventually taper and d/c zyprexa if possible. Will d/c daily CBC. Will check QOD. CBC WNL, neutrophils WNL.
[2017-03-07] MEDS: cloZAPine 100 MG TAB PO SCH (21:04)
[2017-03-08] MEDS: cloZAPine 100 MG TAB PO SCH ×2 (09:14→21:03)
[2017-03-08] MEDS: DOCUSATE 100 MG CAP PO SCH ×2 (09:15→21:03)
[2017-03-08] MEDS: NYSTATIN 100,000 UNIT/GM POWD 15 GM TOPICAL SCH ×2 (09:16→21:04)
[2017-03-08] MEDS: SERTRALINE 25 MG TAB PO SCH (09:17)
[2017-03-08] MEDS: OLANZapine 10 MG TAB PO SCH ×2 (09:17→21:01)
[2017-03-08] MEDS: BUDESONIDE 0.5 MG/2 ML NEBU INHALATION SCH ×2 (09:22→21:05)
--- NOTE | 2017-03-08 12:26 | P.PN ---
Progress Note - Text INTERVERAL HISTORY: Patient lying bed, responds to name but does not sit up or look at ticket writer. Speaks w/o looking. States he is crushing things, asked what is he crushing he mumbles, asked to repeat and says, I'll sit up. He sits up but continues to look away, speaking in almost inaudible tones. Says he thinks we do not know who he is. Smiles when stating this. He is tolerating the titration of clozaril. Day #2 w/o Abilify no problems noted, no increase of psychosis. Continue slow mentation, but improving, halting speech, no spelling or hand signals. Patient not reporting suicidal or homicidal ideation MENTAL STATUS EXAM: Today reduced interaction. Alert and oriented to person and place, poorly groomed, no eye contact. Continues with illogical, tangential thought process. Positive for WARREN. + delusions. Although not identifying auditory hallucinations, he appears to be responding to them and thought blocking. Mood blunted, affect flat No suicidal ideation. Schizophrenia, undifferentiated, decompensated History of OCD PLAN: Continue inpatient psychiatric hospitalization, for safety of patient and others, and medication management of psychosis. Suicide checks q15min, encouraged him to attend groups when he can. Continue titration of Clozaril, increased daily by 50 mg of Clozaril. Begin today 100mg qam, 200mg qhs. D/C lexapro Start zoloft 50mg qam Continue Zyprexa 10mg qam and 20mg qhs, with goal to eventually taper and d/c zyprexa if possible. Will d/c daily CBC. Will check QOD. CBC WNL, neutrophils WNL.
[2017-03-09] MEDS: BUDESONIDE 0.5 MG/2 ML NEBU INHALATION SCH ×2 (09:34→20:53)
[2017-03-09] MEDS: cloZAPine 100 MG TAB PO SCH ×2 (09:34→20:17)
[2017-03-09] MEDS: SERTRALINE 25 MG TAB PO SCH (09:35)
[2017-03-09] MEDS: OLANZapine 10 MG TAB PO SCH ×2 (09:35→20:17)
[2017-03-09] MEDS: DOCUSATE 100 MG CAP PO SCH ×2 (09:35→20:17)
[2017-03-09] MEDS: NYSTATIN 100,000 UNIT/GM POWD 15 GM TOPICAL SCH ×3 (09:35→21:49)
--- NOTE | 2017-03-09 11:14 | P.PN ---
Subjective This is a 37-year-old male. He does not have a primary care physician. He has a past history of schizophrenia and muscular dystrophy. Patient was apparently at [facility]. He apparently attempted suicide was agitated and delusional and hearing voices in his head. Patient states that he was delusional and hearing voices. He states he was suicidal but not homicidal. Patient was transferred to [facility] unit. Patient is seen on the mental health unit. He is unable to give history. He is noted to be stuttering and speech is slow. 02/26: We have been asked to reassess the patient for lack of bowel sounds. Patient was given milk of magnesia and Maalox today. We have also ordered Dulcolax suppository and KUB of the abdomen. X-ray showed no bowel obstruction , possible kidney stone. Patient denies any abdominal pain. Bowel sounds are present. Abdomen is nontender. There was also concern for pinpoint pupils and the CAT scan of the brain was done which was negative. Patient is noted to have pinpoint pupils due to looking into the fluorescent lights. Pupils are equal and reactive. 03/09: We have been asked to recheck the patient as he has had white tears and occasionally white nasal drainage. Patient is nonverbal during our evaluation. He does not appear to be in any distress. Objective - Vital Signs Vital signs: Vital Signs Temp 98.6 F 03/09/17 09:46 Pulse 111 H 03/09/17 09:46 Resp 20 03/09/17 09:46 BP 125/74 03/09/17 09:46 Pulse Ox 97 03/09/17 09:46 Intake & Output 03/08/17 03/09/17 03/09/17 18:59 06:59 18:59 Weight 92.1 kg - Exam Gen: This is a 37-year-old male. He appears to be in no acute distress. He is laying on the bed in his room. Patient does have a sitter at bedside. HEENT: Head is atraumatic, normocephalic. Pupils equal, round. Sclerae is anicteric. No significant sclera erythema. No drainage at this time. NECK: Supple. No JVD. No lymphadenopathy. No thyromegaly. LUNGS: Clear to auscultation. No wheezes or rhonchi. No intercostal retractions. HEART: Regular rate and rhythm. No murmur. ABDOMEN: Soft. Bowel sounds are present. No masses. No tenderness. EXTREMITIES: No pedal edema. No calf tenderness. NEUROLOGICAL: Patient is awake, alert and oriented x3. Cranial nerves 2 through 12 are grossly intact. - Labs CBC & Chem 7: 03/06/17 09:23 02/25/17 21:47 Assessment and Plan Plan: 1. Depression with suicidal ideation in a patient with schizophrenia. Patient admitted to the mental health unit. Continue current plan. 2. Possible seasonal ALLERGIES. Continue Flonase, Singulair and Flovent. 3. No tobacco use. No need for nicotine patch. 4. Possible constipation. Continue milk of magnesia. 5. White-colored tears most likely due to Clozaril. Prolactin level will be requested. Impression and plan of care have been directed as dictated by the signing physician. Crissy Correa nurse practitioner acting as scribe for signing physician.
--- NOTE | 2017-03-09 16:03 | P.PN ---
Progress Note - Text INTERVERAL HISTORY: Patient lying bed, asleep, wakes, does not look at inspector automatic typewriter, does not sit up. Speaks w/o looking. Patient requests to go home. Reports he hears his voice when speaking but when asked again he says he hears voices when no one is around him. He is tolerating the titration of clozaril. Day #3 w/o Abilify no problems noted, no increase of psychosis. Continue slow mentation, but improving, response a little quicker, no spelling or hand signals. Patient refused to answer about suicidal ideation. MENTAL STATUS EXAM: Essentially unchanged from yesterday. Reduced interaction. Alert and oriented to person and place, poorly groomed, no eye contact. Continues with illogical, tangential thought process. Positive for WARREN. + delusions. Although not identifying auditory hallucinations, he appears to be responding to them and thought blocking. Mood blunted, affect flat No suicidal ideation. Schizophrenia, undifferentiated, decompensated History of OCD PLAN: Continue inpatient psychiatric hospitalization, for safety of patient and others, and medication management of psychosis. Suicide checks q15min, encouraged him to attend groups when he can. Continue titration of Clozaril, increased daily by 50 mg of Clozaril. Begin tomorrow 200mg qam, 200mg qhs. Reduce Zyprexa 10mg qam and 10mg qhs, with goal to eventually taper and d/c zyprexa if possible. Continue zoloft 50mg qam CBC in am. Plan on clozaril blood level on Saturday. Continue to encourage patient to attend groups, take showers.
[2017-03-10 08:45] LABS: Basophils % (A) 0 %; CH 28.4; Eosinophils % (A) 0 %; HCT 49.6 % (39.0-53.0); HDW 2.84; HGB 16.1 gm/dL (13.0-17.5); Luc # (Auto) 0.15; Luc % (Auto) 2; Lymphocytes # (A) 1.3 k/uL (1.0-4.8); Lymphocytes % (A) 18 %; MCHC 32.5 g/dL (31.0-37.0); MCV 86.2 fL (80.0-100.0); Mean Platelet Volume 6.7; Monocytes # (A) 0.3 k/uL (0-1.0); Monocytes % (A) 5 %; Neutrophils # (A) 5.2 k/uL (1.3-7.7); Neutrophils % (A) 75 %; RBC 5.75 m/uL (4.30-5.90); RDW 13.8 % (11.5-15.5); WBC (Perox) 6.71
[2017-03-10] MEDS: cloZAPine 100 MG TAB PO SCH ×2 (08:50→20:46)
[2017-03-10] MEDS: OLANZapine 10 MG TAB PO SCH ×2 (08:50→20:46)
[2017-03-10] MEDS: DOCUSATE 100 MG CAP PO SCH ×2 (08:50→20:46)
[2017-03-10] MEDS: NYSTATIN 100,000 UNIT/GM POWD 15 GM TOPICAL SCH ×2 (08:50→20:47)
[2017-03-10] MEDS: SERTRALINE 25 MG TAB PO SCH (08:50)
[2017-03-10] MEDS: BUDESONIDE 0.5 MG/2 ML NEBU INHALATION SCH ×2 (08:52→21:24)
--- NOTE | 2017-03-10 12:34 | P.PN ---
Progress Note - Text INTERVERAL HISTORY: Patient lying bed, asleep, wakes, does not look at bond writer, instead asks is that a new nurse? Patient sits up. Patient says it's okay to turn the light on. Patient says "Miss Magaña I need to tell you that I really believe this that I'm 100% better" Patient is reporting that he is better we discussed that if he is feeling better were very happy but that we need to see his behavior is also 100% better. Patient informed that if he is 100% better he should be showering every day, going to the groups, going to have his meals. Patient reiterates that he is 100% better. A bit later patient states " I'm still on a roller coaster" patient was unable to state what he meant by a roller coaster, but he states that he is still capable of hearing voices and knowing things that others do not. Review of CBC within normal limits. He is tolerating the titration of clozaril. Day #4 w/o Abilify, no problems with reduction of zyprexa last night, no increase of psychosis. Continue slow mentation, but this is improving, responds quicker, no spelling or hand signals. Patient refused to answer about suicidal ideation. Laboratory Tests 03/10/17 08:18 WBC 7.0 RBC 5.75 Hgb 16.1 Hct 49.6 MCV 86.2 MCH 28.0 MCHC 32.5 RDW 13.8 Plt Count 265 Neutrophils % 75 Lymphocytes % 18 Monocytes % 5 Neutrophils # 5.2 Lymphocytes # 1.3 Monocytes # 0.3 Eosinophils # 0.0 Basophils # 0.0 MENTAL STATUS EXAM: Improved interaction compared to yesterday. Alert and oriented to person and place, poorly groomed, fair eye contact. Continues with illogical, tangential thought process. Positive for WARREN. + delusions. Believes he can predict the future, and still hearing voices. appears to be responding to them but less today. Mood blunted, affect flat No suicidal ideation. Schizophrenia, undifferentiated, decompensated History of OCD PLAN: Continue inpatient psychiatric hospitalization, for safety of patient and others, and medication management of psychosis. Suicide checks q15min, encouraged him to attend groups when he can. Continue titration of Clozaril. Will stay at 200mg qam, 200mg qhs. until blood level tomorrow AM. Zyprexa 10mg qam and 10mg qhs, with goal to eventually taper and d/c zyprexa if possible. Continue zoloft 50mg qam Plan on clozaril blood level on Saturday. Continue to encourage patient to attend groups, take showers.
[2017-03-11] MEDS: cloZAPine 100 MG TAB PO SCH ×2 (08:50→21:04)
[2017-03-11] MEDS: OLANZapine 10 MG TAB PO SCH ×2 (08:50→21:05)
[2017-03-11] MEDS: NYSTATIN 100,000 UNIT/GM POWD 15 GM TOPICAL SCH ×2 (08:50→21:05)
[2017-03-11] MEDS: DOCUSATE 100 MG CAP PO SCH ×2 (08:50→21:04)
[2017-03-11] MEDS: SERTRALINE 25 MG TAB PO SCH (08:50)
[2017-03-11] MEDS: BUDESONIDE 0.5 MG/2 ML NEBU INHALATION SCH ×2 (09:31→21:06)
--- NOTE | 2017-03-11 15:14 | P.PN ---
Progress Note - Text INTERVERAL HISTORY: Patient lying bed, asleep, wakes, answers, hi doctor, he raises up on arms and looks but then lays back down, not looking at copywriter. Patient is reporting that he is better but he has now showered today, he has not gone to groups. Continues to show some improvement in his thinking, not as slow but still with TB. No evidence to suggest increase of psychosis with reductioin in zyprexa and d/c of abilify, however no improvement in ADLs Continue slow mentation, but this is improving, responds quicker, no spelling or hand signals. Patient refused to answer about suicidal ideation. Laboratory Tests 03/10/17 08:18 WBC 7.0 RBC 5.75 Hgb 16.1 Hct 49.6 MCV 86.2 MCH 28.0 MCHC 32.5 RDW 13.8 Plt Count 265 Neutrophils % 75 Lymphocytes % 18 Monocytes % 5 Neutrophils # 5.2 Lymphocytes # 1.3 Monocytes # 0.3 Eosinophils # 0.0 Basophils # 0.0 MENTAL STATUS EXAM: Reduce interaction compared to yesterday. Alert and oriented to person and place, poorly groomed, fair eye contact. Continues with illogical, tangential thought process. Positive for WARREN. + delusions. Believes he can predict the future, and still hearing voices. appears to be responding to them but less today. Mood blunted, affect flat No suicidal ideation. Schizophrenia, undifferentiated, decompensated History of OCD PLAN: Continue inpatient psychiatric hospitalization, for safety of patient and others, and medication management of psychosis. Suicide checks q15min, encouraged him to attend groups when he can. Continue titration of Clozaril. Will stay at 200mg qam, 200mg qhs. until blood level tomorrow AM. Pending Decrease Zyprexa 5mg qam and 10mg qhs, with goal to eventually taper and d/c zyprexa if possible. Continue zoloft 50mg qam ADLs need to be encouraged Continue to encourage patient to attend groups, take showers.
[2017-03-12 08:35] LABS: Norclozapine 277 ng/mL (200-700)
[2017-03-12] MEDS ORDERED: OLANZapine 5 MG TAB PO SCH ×2 (09:00→21:00)
[2017-03-12] MEDS: BUDESONIDE 0.5 MG/2 ML NEBU INHALATION SCH ×2 (09:07→20:58)
[2017-03-12] MEDS: SERTRALINE 25 MG TAB PO SCH (09:15)
[2017-03-12] MEDS: NYSTATIN 100,000 UNIT/GM POWD 15 GM TOPICAL SCH ×2 (09:16→21:59)
[2017-03-12] MEDS: DOCUSATE 100 MG CAP PO SCH ×2 (09:16→21:43)
[2017-03-12] MEDS: cloZAPine 100 MG TAB PO SCH (09:16)
--- NOTE | 2017-03-12 11:48 | P.PN ---
Progress Note - Text INTERVERAL HISTORY:patient seen walking in the hallway with another patient, when called he turned to the other patients that I have to go my doctor is calling. Patient came back to his room sat on his bed, made occasional eye contact, made one hand signal, no spelling of words. Patient reports that he took a shower, when asked about shaving he stated that we have his shaver in a bag. Patient is still malodorous, staff reports he has refused to change his clothing. When asked if he is having or hearing auditory hallucinations he reports that he is having good and bad thoughts, the bad thought was that he was going to be burned, he said this will happen when he leaves here. Patient again did not respond when asked about suicidal ideation. Patient received zyprexa 5mg this morning w/o problems so far. Laboratory Tests 03/11/17 07:53 Clozapine 476 Norclozapine 277 MENTAL STATUS EXAM:A&OX3, poor grooming, poor eye contact, improved mentation, with quicker responses, still with TB. +auditory hallucinations appears to be responding to them but less today. Mood blunted, affect flat No suicidal ideation. Schizophrenia, undifferentiated, decompensated History of OCD PLAN: Continue inpatient psychiatric hospitalization, for safety of patient and others, and medication management of psychosis. Suicide checks q15min, encouraged him to attend groups when he can. Continue titration of Clozaril. Will increase today, 200mg qam, 250mg qhs. This level is considered therapeutic but will increase if needed. CBC tomorrow morning Decrease to 10mg qhs, with goal to eventually taper and d/c zyprexa if possible. Increase zoloft 100mg qam ADLs need to be encouraged Continue to encourage patient to attend groups, take showers. SW will contact family for their input and how close is patient to his baseline.
[2017-03-12 14:43] LABS: Basophils % (A) 0 %; CH 28.7; CHCM 34.6; Eosinophils % (A) 0 %; HCT 44.9 % (39.0-53.0); HDW 2.93; HGB 15.6 gm/dL (13.0-17.5); Luc # (Auto) 0.18; Luc % (Auto) 2; Lymphocytes # (A) 1.3 k/uL (1.0-4.8); Lymphocytes % (A) 13 %; MCHC 34.8 g/dL (31.0-37.0); MCV 83.4 fL (80.0-100.0); Mean Platelet Volume 7.6; Monocytes # (A) 0.6 k/uL (0-1.0); Monocytes % (A) 6 %; Neutrophils # (A) 7.6 k/uL (1.3-7.7); Neutrophils % (A) 79 %; RBC 5.39 m/uL (4.30-5.90); RDW 13.6 % (11.5-15.5); WBC 9.7 k/uL (3.8-10.6); WBC (Perox) 9.39
[2017-03-12] MEDS ORDERED: cloZAPine 100 MG TAB PO SCH (21:00)
[2017-03-13 01:25] VITALS: BP 110/65; RESP 18; TEMP 98.1
--- NOTE | 2017-03-13 02:06 | XR ---
EXAM: XR Chest, 1 View CLINICAL HISTORY: Cough, sweats. Assess for pneumonia. TECHNIQUE: Frontal view of the chest. COMPARISON: No relevant prior studies available. FINDINGS: Lungs: Low lung volumes limit evaluation of the lungs. No definite focal consolidation visualized although subtle retrocardiac opacity is not excluded. Pleural space: No significant pleural effusion. No pneumothorax. Heart: Cardiac silhouette size within normal limits Mediastinum: Unremarkable mediastinum accounting for low lung volumes. Bones/joints: Unremarkable. IMPRESSION: Low lung volumes limit evaluation of the lungs. No definite focal consolidation visualized although subtle retrocardiac opacity is not excluded. Repeat frontal radiograph with improved inspiratory effort and lateral chest radiograph can be considered to further assess if clinically indicated.
[2017-03-13] MEDS ORDERED: SERTRALINE 25 MG TAB PO SCH (09:00)
[2017-03-13] MEDS ORDERED: cloZAPine 100 MG TAB PO SCH ×2 (09:00→21:00)
[2017-03-13] MEDS: DOCUSATE 100 MG CAP PO SCH (09:04)
[2017-03-13] MEDS: NYSTATIN 100,000 UNIT/GM POWD 15 GM TOPICAL SCH (09:05)
[2017-03-13] MEDS: BUDESONIDE 0.5 MG/2 ML NEBU INHALATION SCH (10:00)
[2017-03-13 11:17] VITALS: PULSE 99
--- NOTE | 2017-03-13 11:57 | P.DS ---
Providers Date of admission: 02/24/17 14:24 Expected date of discharge: 03/13/17 Attending physician: Katerina Roa MD Consults: 02/24/17 15:54 Consult Physician Routine Consulting Provider: Rafita Serrato Reason/Comments: Follow Up H & P Do you want consulting provider notified?: Yes Primary care physician: Physician Nonstaff - Discharge Diagnosis(es) (1) Schizophrenia in partial remission with history of multiple episodes Current Visit: Yes Status: Chronic Priority: High Onset Date: Unknown (2) Suicidal ideation Current Visit: Yes Status: Resolved Hospital Course: Patient admitted from [facility]. Patient was brought to the emergency room [facility] after expressing suicidal and homicidal ideation. Patient has history of schizophrenia, had been maintained on Clozaril for 20 years, there was a lab test that supposedly showed a reduction in his white count and his neutrophils, his psychiatrist took him off of Clozaril. Patient was then admitted to another psychiatric unit for approximately 3 weeks he was placed on Abilify 40 mg olanzapine 40 mg. When he was discharged parents took him to a new psychiatrist Dr. Girard, who restarted a titration of Clozaril. Patient went home with his family and then began to express the suicide and homicidal ideation. He was transferred to [facility] unit. Patient was psychotic, had thought blocking, thought he could predict the future , believed he had different identities. His mentation was extremely slow he used hand signals to communicate, he would spell words. [facility] was contacted patient was assigned to me and we began a titration of Clozaril. Consultation with Dr. Giradr was appreciated and his past medication was discussed as well as the plan. As patient slowly improved Abilify was reduced and discontinued. There did not appear to be increase of psychosis, or behavioral problems. Olanzapine was slowly tapered, however after discussion with family members who felt he was ready to come home, I decrease the olanzapine last night from 10 mg to 5 mg which was a bit sooner than planned. Today patient is not displaying any increased behavioral problems, he is not suicidal. He continues to have some auditory hallucinations, no command hallucinations. He still has some thought blocking, his thinking is slow but this may be his normal speaking manner. Lexapro had been tapered and discontinued. Sertraline was added he is now taking 50 mg. No evidence of OCD behavior Patient Clozaril level was in a therapeutic range but could be higher, so his last increase was 50mg, 200mg qam and 250 at bedtime. Although still experiencing psychosis, not attending groups, and somewhat resistant to showering, his parents saw enough improvement to have him at home. Laboratory Tests 03/11/17 03/12/17 07:53 14:33 WBC 9.7 RBC 5.39 Hgb 15.6 Hct 44.9 MCV 83.4 MCH 29.0 MCHC 34.8 RDW 13.6 Plt Count 237 Neutrophils % 79 Lymphocytes % 13 Monocytes % 6 Clozapine 476 Norclozapine 277 Patient alert and oriented 2, poor eye contact, poorly groomed in street clothing. Speech normal volume, rate and production. Coherent, illogical at times, circumstantial and tangential, thought process. No WARREN, no FOI. + TB no TW/TI] + auditory and visual hallucinations. Denied paranoid ideation, delusions or IOR. Memory [iimpaired] Cognition[ below average] Mood blunted, affect flat, congruent with mood. Denies suicidal ideation, denies homicidal ideation. Insight [none]; Judgment impaired Schizophrenia, undifferentiated severe, in partial remission OCD Continue Clozaril 200 every morning 250 mg daily at bedtime Continue olanzapine 5 mg at bedtime Continue sertraline 50 mg daily Plan - Discharge Summary New Discharge Prescriptions: New cloZAPine [Clozaril] 250 mg PO HS #75 tab cloZAPine [Clozaril] 200 mg PO DAILY #60 tab Nystatin 100,000 Unit/gm Powd [Mycostatin Powder] 1 applic TOPICAL BID #1 dose OLANZapine [ZyPREXA] 5 mg PO DAILY@2100 #30 tab Sertraline [Zoloft] 50 mg PO DAILY #60 tab Continue Fluticasone Nasal Allen [Flonase Nasal Allen] 1 spr EA NOSTRIL DAILY PRN PRN Reason: Allergy Symptoms Montelukast [Singulair] 10 mg PO HS PRN PRN Reason: Allergy Symptoms Fluticasone Propionate [Flovent Hfa 110mcg] 2 puff INHALATION RT-BID Discontinued cloZAPine [Clozaril] 100 mg PO HS ARIPiprazole [Abilify] 20 mg PO BID OLANZapine [ZyPREXA] 10 mg PO BID Escitalopram [Lexapro] 20 mg PO DAILY hydrOXYzine PAMOATE [Vistaril] 25 mg PO BID PRN PRN Reason: Anxiety Discharge Medication List Fluticasone Nasal Allen [Flonase Nasal Allen] 1 spr EA NOSTRIL DAILY PRN [History] Fluticasone Propionate [Flovent Hfa 110mcg] 2 puff INHALATION RT-BID 02/24/17 [ History] Montelukast [Singulair] 10 mg PO HS PRN 02/24/17 [History] Nystatin 100,000 Unit/gm Powd [Mycostatin Powder] 1 applic TOPICAL BID #1 dose 03/13/17 [Rx] OLANZapine [ZyPREXA] 5 mg PO DAILY@2100 #30 tab 03/13/17 [Rx] Sertraline [Zoloft] 50 mg PO DAILY #60 tab 03/13/17 [Rx] cloZAPine [Clozaril] 200 mg PO DAILY #60 tab 03/13/17 [Rx] cloZAPine [Clozaril] 250 mg PO HS #75 tab 03/13/17 [Rx] Follow up Appointment(s)/Referral(s): Intake, intake [Other] - 03/14/17 3:15 pm (Vicky James 03/14/17 at 3:[address] Girard 03/26/17 at 10:45 am) Patient Instructions/Handouts: Schizophrenia (DC), Suicide Prevention for Adults (DC) Activity/Diet/Wound Care/Special Instructions: NO alcohol or street drugs, activity as tolerated, diet as tolerated, remove firearms from home. Follow up with outpatient provider as set up at time of discharge, follow up with PCP in one to two days. Call crisis line or 230 if having thoughts of hurting himself or anyone else. Discharge Disposition: HOME SELF-CARE
== END 2017-03-13 14:16 | disposition home or self-care (01) | DRG 885 ==
LOC: 3MHU 14:24
PROVIDERS: ADMIT Psychiatry & Neurology Addiction Medicine; ATTEND Psychiatry & Neurology Addiction Medicine
DX: F20.9 Schizophrenia, unspecified (principal); G71.0 Muscular dystrophy; R45.851 Suicidal ideations; F32.9 Major depressive disorder, single episode, unspecified; R45.850 Homicidal ideations; J30.2 Other seasonal allergic rhinitis; R10.30 Lower abdominal pain, unspecified; F41.9 Anxiety disorder, unspecified; F42.9 Obsessive-compulsive disorder, unspecified; R45.1 Restlessness and agitation; T42.4X5A Adverse effect of benzodiazepines, initial encounter; Y92.239 Unspecified place in hospital as the place of occurrence of the external cause; Z79.899 Other long term (current) drug therapy; Z88.6 Allergy status to analgesic agent; Z88.8 Allergy status to other drugs, medicaments and biological substances
CPT/HCPCS: 70450; 71010; 74000; 80048; 80053; 80159; 80306; 81003; 84146; 84443; 84484; 85025; 85027; 94640